=== PATIENT | female | born 1995 | race Caucasian/White ===

== ENCOUNTER 2019-01-18 14:04 | Outpatient (CLI) | payer BC ==
--- NOTE | 2019-01-18 15:54 | MRI ---
MR OF THE CERVICAL SPINE WITHOUT CONTRAST 01/18/19 INDICATION: History of chronic neck pain that radiates into the whole body but predominantly on the right side fo r many years. TECHNIQUE: Routine noncontrast MR images were obtained in the cervical spine. FINDINGS: The visualized posterior fossa appears within normal limits. There is intermediate signal intensity involving the bone marrow of the cervical spine. Craniocervical junction appears within normal limits. The visualized aspects of the prevertebral and paravertebral soft tissues appear within normal limits. At C2-C3, there is no appreciable central canal or neural foraminal narrowing. At C3-C4, there is no appreciable central canal or neural foraminal narrowing. At C4-C5, there is no appreciable central canal or neural foraminal narrowing. At C5-C6, there is a mild broad based bulge but no appreciable central canal or neural foraminal narr owing. At C6-C7, there is a mild broad based bulge but no appreciable central canal or neural foraminal narr owing. At C7-T1, there is no appreciable central canal or neural foraminal narrowing. IMPRESSION: Mild spondylosis of the cervical spine but no appreciable central canal or neural foraminal narrowing . POS: OFF
--- NOTE | 2019-01-18 15:59 | MRI ---
MRI OF THE THORACIC SPINE WITHOUT CONTRAST: INDICATION: History of chronic back and chronic neck pain that radiates to the whole body predominantly on the ri ght side for many years. TECHNIQUE: Multiplanar, multisequence MR images were obtained of the thoracic spine without contrast. No compar isons are available. FINDINGS: There is diffuse intermediate signal involving the bone marrow of the thoracolumbar spine. The spina l canal is preserved. Spinal cord has a normal signal intensity. The disk spaces of the thoracic sp ine are normal-appearing. There is no appreciable central canal or neural foraminal narrowing seen f rom T1-T2 through T12-L1. Visualized paravertebral and prevertebral soft tissues appear within shanta l limits. No acute fracture is demonstrated. IMPRESSION: 1. No central canal or neural foraminal narrowing demonstrated. 2. Diffuse intermediate signal intensity involving the bone marrow can be seen in patients who have chronic anemia. This also can be seen in patients who are smokers or have a history of obesity. Rec ommend correlation with clinical examination and correlation with a CBC. POS: OFF
== END 2019-01-18 14:05 | disposition home or self-care (01) ==
LOC: SCSMRI 14:04
PROVIDERS: ATTEND Specialist
DX: M48.04 Spinal stenosis, thoracic region (principal); M48.02 Spinal stenosis, cervical region; M47.812 Spondylosis without myelopathy or radiculopathy, cervical region
CPT/HCPCS: 72141; 72146